=== PATIENT | male | born 1960 | race Caucasian/White ===

== ENCOUNTER 2016-12-19 18:05 | Emergency (ER) | payer MEDICAID ==
[~2016-12-19] VITALS: Ht 172.7 cm; Wt 86.2 kg
--- NOTE | 2016-12-19 18:18 | Emergency Room Report ---
History of Present Illness General Chief Complaint: Alcohol Intoxication Source: Patient, EMS (Soo Dietz) Present Illness HPI 56 YO Male presents to the ED intoxicated with alcohol, pt. is NAD, pt. is alert , no obvious signs of trauma, able to ambulate to [facility], pt. is tearful, and states hx of COPD but continues to smoke regularly. pt. states he is rx'd inhaler. states he has a hx of severe depression and nothing works for him. denies SI/HI. Denies trauma or fall. pt. does not know how much he drank today other than "a lot" denies abdominal pain, N/V, Fevers or chills. denies sputum production. Denies CP, Palpitations, LOC, AMS, dizziness, Changes in Vision, Sensation, paresthesias, or a sudden severe headache. (Soo Dietz) Allergies: Coded Allergies: UNABLE TO ASSESS (Unverified , 12/19/16) Patient History Past Medical History: see triage record, psych hx - depression Past Surgical History: none Pertinent Family History: none Social History: Reports: alcohol use, smoking Reviewed Nursing Documentation: PMH: Agreed, PSxH: Agreed (Soo Dietz) Nursing Documentation-PMH Past Medical History: No Stated History (Soo Dietz) Review of Systems All Other Systems: negative except mentioned in HPI - pt is intoxicated, answers questions (Soo Dietz) Physical Exam Vital Signs Date Time Temp Pulse Resp B/P Pulse Ox O2 Delivery O2 Flow Rate FiO2 12/19/16 18:03 72 18 154/70 98 Sp02 EP Interpretation: reviewed, abnormal - elevated BP General Appearance: no apparent distress, alert, GCS 15, non-toxic, other - patient is disheveled Head: normocephalic, atraumatic Eyes: bilateral eye PERRL, bilateral eye normal inspection ENT: hearing grossly normal, normal pharynx, no angioedema, normal voice Neck: full range of motion, supple/symm/no masses Respiratory: chest non-tender, lungs clear, normal breath sounds, speaking full sentences Cardiovascular #1: regular rate, rhythm, no edema, normal capillary refill Gastrointestinal: normal bowel sounds, non tender, soft, no guarding, no rebound Rectal: deferred Musculoskeletal: back normal, gait/station normal, normal range of motion, non- tender Neurologic: alert, oriented x3, responsive, motor strength/tone normal, sensory intact, normal gait, speech normal, no pronator Psychiatric: judgement/insight normal, memory normal, mood/affect normal, depressed affect Suicide Risk Assessment: Suicidal Ideation: No Had intent to initiate attempt: No Pt's plan for suicide attempt: No Has means to complete attempt: No Skin: normal color, no rash, warm/dry, other - pt has flushed appearance of face and chest. Lymphatic: no adenopathy (Soo Dietz) Medical Decision Making PA Attestation Dr. Carver is my supervising Physician whom patient management has been discussed with. (Soo Dietz) Diagnostic Impression: Primary Impression: Acute alcoholic intoxication Qualified Codes: F10.120 - Alcohol abuse with intoxication, uncomplicated Additional Impressions: Depressed Qualified Codes: F33.1 - Major depressive disorder, recurrent, moderate History of COPD ER Course Pt. presents to the ED intoxicated with alcohol, pt. is NAD, pt. is alert, no obvious signs of trauma, able to ambulate to [facility], pt. is tearful, and states hx of COPD but continues to smoke regularly. pt. states he is rx'd inhaler. states he has a hx of severe depression and nothing works for him. denies SI/ HI. Ddx considered but are not limited to ETOH, Trauma, Syncope, dementia, OD, COPD exacerbation, PNA Vital signs: are WNL, pt. is afebrile H&PE are most consistent with ETOH abuse. and hx of COPD ORDERS: -none required at this time. -pt. declines psych. services for his depression. ED INTERVENTIONS: - Albuterol Nebulized. -Atrovent nebulized Tx. -Observance while he detoxifies. Pt. was allowed to sleep/rest until clinically sober. DISCHARGE: At this time pt. is stable for d/c to home. Will provide printed patient care instructions, and any necessary prescriptions. Care plan and follow up instructions have been discussed with the patient prior to discharge. (Soo Dietz) ER Course Hospital Course 56-year-old male presents to ED status post EtOH intoxication. History of depression Clinical course Patient initially seen and evaluated by my PA; please see her note for full history and physical Patient noted to be wheezing with history of COPD. Given breathing treatment with symptoms improved Patient initially endorsed some depression, crying. However no evidence of suicidal homicidal ideation. No hearing voices. Patient allowed to rest in now awake alert oriented x3. ambulating without difficulty. Patient feels better and wishes to be discharged. No longer feeling depressed. I do not believe patient requires emergent psychiatric evaluation Diagnosis - ETOH intoxication , depressed, COPD stable and discharged to home. Followup with PMD. Return to ED if symptoms recur or worsen (ARIADNA LOFTON M.D.) Last Vital Signs Date Time Temp Pulse Resp B/P Pulse Ox O2 Delivery O2 Flow Rate FiO2 12/19/16 18:03 72 18 154/70 98 (Soo Dietz) Status: improved (ARIADNA LOFTON M.D.) Disposition: HOME, SELF-CARE Condition: Stable Signed Out To: Dr. Lofton (Soo Dietz) Soo Dietz December 19, 2016 18:18 ARIADNA LOFTON M.D. December 20, 2016 06:00
[2016-12-19] MEDS ORDERED: Ipratropium 0.02% Inh Soln 2.5ml UD HHN ONE (18:30)
[2016-12-19] MEDS ORDERED: Albuterol ud Inhalation HHN ONE (18:30)
[2016-12-19 20:18] VITALS: BP 118/75
[2016-12-19 22:23] VITALS: BP 114/68
[2016-12-20 01:37] VITALS: BP 109/66
[2016-12-20 04:51] VITALS: BP 143/73
[2016-12-20 05:27] VITALS: BP 143/73
== END 2016-12-20 05:30 | disposition home or self-care (01) ==
LOC: EDBD 18:05 → EMR 19:55
DX: F10.120 Alcohol abuse with intoxication, uncomplicated (principal); F33.1 Major depressive disorder, recurrent, moderate; J44.9 Chronic obstructive pulmonary disease, unspecified; F17.200 Nicotine dependence, unspecified, uncomplicated
CPT/HCPCS: 82962; 94640; 94664; 99284

== ENCOUNTER 2017-03-04 13:00 | Emergency (ER) | payer MEDICAID ==
[~2017-03-04] VITALS: Ht 172.7 cm; Wt 72.6 kg
[2017-03-04 15:29] VITALS: BP 138/69
[2017-03-04 19:20] VITALS: BP 138/69
--- NOTE | 2017-03-04 20:18 | Emergency Room Report ---
History of Present Illness General Chief Complaint: Alcohol Intoxication Source: EMS Present Illness HPI The patient is a 57-year-old male with a history of alcohol abuse presenting for alcohol intoxication. He has been seen in this emergency department for the same complaints in the past. He does not provide any information at this time Allergies: Coded Allergies: UNABLE TO ASSESS (Unverified , 12/19/16) Patient History Past Medical History: see triage record Pertinent Family History: none Social History: Reports: alcohol use Reviewed Nursing Documentation: PMH: Agreed, PSxH: Agreed Nursing Documentation-PM Past Medical History: No History, Except For Hx Hypertension: Yes History Of Psychiatric Problem: Yes - etoh abuse Review of Systems All Other Systems: limited Physical Exam Vital Signs Date Time Temp Pulse Resp B/P Pulse Ox O2 Delivery O2 Flow Rate FiO2 03/04/17 12:41 98.2 80 18 118/97 98 Room Air Sp02 EP Interpretation: reviewed, normal General Appearance: no apparent distress, alert, GCS 15, non-toxic Head: normocephalic, atraumatic Eyes: bilateral eye PERRL, bilateral eye normal inspection ENT: hearing grossly normal, normal pharynx, no angioedema, normal voice Neck: full range of motion, supple/symm/no masses Respiratory: chest non-tender, lungs clear, normal breath sounds, speaking full sentences Cardiovascular #1: regular rate, rhythm, no edema Gastrointestinal: normal bowel sounds, non tender, soft, non-distended, no guarding, no rebound Musculoskeletal: back normal, gait/station normal, normal range of motion, non- tender Neurologic: alert, responsive, motor strength/tone normal, sensory intact, other - slurred speech Psychiatric: judgement/insight normal, memory normal, mood/affect normal, no suicidal/homicidal ideation Skin: normal color, no rash, warm/dry, well hydrated Medical Decision Making PA Attestation Dr. Lofton is my supervising physician. Patient management was discussed with my supervising physician Diagnostic Impression: Primary Impression: Acute alcoholic intoxication Qualified Codes: F10.920 - Alcohol use, unspecified with intoxication, uncomplicated ER Course The patient is a 57-year-old male with a history of alcohol abuse presenting for alcohol intoxication DDx considered but not limited to: acute alcohol intoxication, hepatic encephalopathy, drug overdose, hypoglycemia, psychosis Physical exam: Vitals are within normal limits. No apparent distress. Patient is lethargic. Head is normocephalic atraumatic. Pupils are equally round and reactive to light The patient is arousable by touch or name. Lungs are clear to auscultation bilaterally. No abnormal tenderness. Abdomen is soft. Otherwise exam is unremarkable The patient is given time to rest in the emergency department. He is given IV fluids. Upon reevaluation, patient admits to drinking alcohol. The patient is able to ambulate well and is asking to leave at this time. The patient is alert and oriented. The patient be discharged home and given ER precautions. Patient was given advice on alcohol addiction Last Vital Signs Date Time Temp Pulse Resp B/P Pulse Ox O2 Delivery O2 Flow Rate FiO2 03/04/17 19:20 98.0 88 20 138/69 98 Room Air Status: improved Disposition: HOME, SELF-CARE Condition: Improved Referrals: [facility]ERR[facility] (PCP) Patient Instructions: Alcohol Intoxication, [id number] Additional Instructions: My findings were discussed with the patient. Patient was counseled to seek help for alcohol abuse. Patient is stable for discharge, is alert and oriented, and can ambulate without difficulty. Patient is asked to return to ED if you experiences chest pain, abdominal pain, dizziness, falls down, or for any reason. ADIA HARMAN Mar 04, 2017 20:18
== END 2017-03-04 18:40 | disposition home or self-care (01) ==
LOC: MERGE 13:00 → EDBD 13:00 → EMR 13:19
DX: F10.129 Alcohol abuse with intoxication, unspecified (principal); I10 Essential (primary) hypertension
CPT/HCPCS: 96374; 96375; 99284; J2405

== ENCOUNTER 2017-03-05 19:45 | Emergency (ER) | payer MEDICAID ==
[~2017-03-05] VITALS: Ht 172.7 cm; Wt 72.6 kg
[2017-03-05 19:45] VITALS: BP 110/72
[2017-03-05 21:23] VITALS: BP 110/72
--- NOTE | 2017-03-05 21:54 | Emergency Room Report ---
History of Present Illness General Chief Complaint: Alcohol Intoxication Source: Patient, EMS Present Illness HPI The patient is a 57-year-old male who was seen in this emergency Department yesterday for alcohol intoxication brought in by ambulance for alcohol intoxication. He did not provide any information at this time Allergies: Coded Allergies: No Known Allergies (Unverified , 03/05/17) UNABLE TO ASSESS (Unverified , 12/19/16) Patient History Past Medical History: see triage record Pertinent Family History: none Social History: Reports: alcohol use Reviewed Nursing Documentation: PMH: Agreed, PSxH: Agreed Nursing Documentation-PMH Past Medical History: No History, Except For Hx Hypertension: Yes History Of Psychiatric Problem: Yes - Depression Review of Systems All Other Systems: limited Physical Exam Vital Signs Date Time Temp Pulse Resp B/P Pulse Ox O2 Delivery O2 Flow Rate FiO2 03/05/17 19:36 97.9 82 16 110/72 99 Room Air Sp02 EP Interpretation: reviewed, normal General Appearance: no apparent distress, alert, GCS 15, non-toxic Head: normocephalic, atraumatic Eyes: bilateral eye PERRL, bilateral eye normal inspection ENT: hearing grossly normal, normal pharynx, no angioedema, normal voice Respiratory: chest non-tender, lungs clear, normal breath sounds Cardiovascular #1: regular rate, rhythm, no edema Musculoskeletal: back normal, gait/station normal, normal range of motion, non- tender Neurologic: alert, responsive, motor strength/tone normal, sensory intact, other - slurred speech Skin: normal color, no rash, warm/dry, well hydrated Medical Decision Making PA Attestation Dr. Mark is my supervising physician. Patient management was discussed with my supervising physician Diagnostic Impression: Primary Impression: Acute alcoholic intoxication Qualified Codes: F10.929 - Alcohol use, unspecified with intoxication, unspecified ER Course The patient is a 57 old male presenting for alcohol intoxication DDx considered but not limited to: acute alcohol intoxication, hepatic encephalopathy, drug overdose, hypoglycemia, psychosis Physical exam: Vitals are within normal limits. No apparent distress. Patient is lethargic. Head is normocephalic atraumatic. Pupils are equally round and reactive to light The patient is arousable by touch or name. Lungs are clear to auscultation bilaterally. No abnormal tenderness. Abdomen is soft. Otherwise exam is unremarkable The patient is given time to rest in the emergency department. The patient is able to ambulate well and is asking to leave at this time. The patient is alert and oriented. The patient be discharged home and given ER precautions. Patient was given advice on alcohol addiction Last Vital Signs Date Time Temp Pulse Resp B/P Pulse Ox O2 Delivery O2 Flow Rate FiO2 03/05/17 21:23 97.9 72 16 110/72 99 Room Air Status: improved Disposition: HOME, SELF-CARE Condition: Improved Referrals: [facility] (PCP) Patient Instructions: Alcohol Intoxication Additional Instructions: I discussed my findings with the patient. All questions and concerns have been answered. Treatment and medication compliance have been addressed. I advised the patient that they need to follow up with PMD in 3-5 days. Return to ED if symptoms worsen, new symptoms arise, or if needed for any reason. Patient verbalized understanding of discharge instructions. ADIA HARMAN Mar 05, 2017 21:54
== END 2017-03-05 21:25 | disposition home or self-care (01) ==
LOC: EDBD 19:45 → EMR 21:03
DX: F10.129 Alcohol abuse with intoxication, unspecified (principal); I10 Essential (primary) hypertension; F32.9 Major depressive disorder, single episode, unspecified
CPT/HCPCS: 99284

== ENCOUNTER 2020-09-25 22:45 | Emergency (ER) | payer MEDICAID ==
[~2020-09-25] VITALS: Ht 172.7 cm; Wt 68.0 kg
[2020-09-25 23:05] VITALS: BP 144/84
--- NOTE | 2020-09-25 23:05 | Emergency Room Report ---
History of Present Illness General Chief Complaint: Alcohol Intoxication Source: Patient, Medical Record, EMS Present Illness HPI This is a 60-year-old male who is homeless. He was brought in with chief complaint of alcohol intoxication. Multiple bystanders called 911 but patient h ad refused transport into the last time. He was found on the ground next to his wheelchair. Patient said he has been drinking. He denies any complaint. No fever chills but no nausea or vomiting. Not suicidal or homicidal. History is limited because of his intoxication. Allergies: Coded Allergies: No Known Allergies (Unverified , 03/05/17) COVID-19 Screening Contact w/high risk pt: No Experienced COVID-19 symptoms?: No COVID-19 Testing performed [employer]CHESTRA: Yes - Jul 2020 COVID-19 Screening: Negative COVID-19 COVID-19 Testing Source: unknown Patient History Past Medical History: see triage record, old chart reviewed, HTN Past Surgical History: other Pertinent Family History: none Social History: Reports: alcohol use Immunizations: other Reviewed Nursing Documentation: PMH: Agreed; PSxH: Agreed Nursing Documentation-PMH Past Medical History: No History, Except For Hx Hypertension: Yes Review of Systems Eye: Denies: eye pain, blurred vision ENT: Denies: ear pain, nose congestion, throat swelling Respiratory: Denies: cough, shortness of breath Cardiovascular: Denies: chest pain, palpitations Gastrointestinal: Denies: abdominal pain, diarrhea, nausea, vomiting Musculoskeletal: Denies: back pain, joint pain Skin: Denies: rash Neurological: Denies: headache, numbness Endocrine: Denies: increased thirst, increased urine Hematologic/Lymphatic: Denies: easy bruising All Other Systems: negative except mentioned in HPI Physical Exam Vital Signs Date Time Temp Pulse Resp B/P (MAP) Pulse Ox O2 Delivery O2 Flow Rate FiO2 09/25/20 22:46 98.8 59 18 123/86 (98) 98 Room Air Vitals normal Sp02 EP Interpretation: reviewed, normal General Appearance: well appearing, no apparent distress, alert, other - intoxicated Head: normocephalic, atraumatic Eyes: bilateral eye PERRL, bilateral eye EOMI ENT: hearing grossly normal, normal pharynx Neck: full range of motion, supple, no meningismus Respiratory: chest non-tender, lungs clear, normal breath sounds Cardiovascular #1: regular rate, rhythm, no murmur Gastrointestinal: normal bowel sounds, non tender, no mass, no organomegaly, no bruit, non-distended Musculoskeletal: back normal, normal range of motion, other - Amputation of right leg Psychiatric: mood/affect normal Skin: other - Multiple skin graftings; superficial abrasion to dorsum of his hands. Medical Decision Making Homeless Attestation I, The treating physician, Dr Karl Stone, has assessed and agrees that patient is medically stable for discharge to an outpatient disposition. Diagnostic Impression: Primary Impression: Acute alcoholic intoxication Qualified Codes: F10.920 - Alcohol use, unspecified with intoxication, uncomplicated ER Course Patient presents with alcohol intoxication. There is no head trauma to warrant x-ray or CT scan. Patient denies any complaint. Will observe until clinical sobriety. Last Vital Signs Date Time Temp Pulse Resp B/P (MAP) Pulse Ox O2 Delivery O2 Flow Rate FiO2 09/25/20 22:46 98.8 59 18 123/86 (98) 98 Room Air Status: improved Disposition: HOME, SELF-CARE Condition: Stable Patient Instructions: Alcohol Intoxication Additional Instructions: Follow-up with your doctor in 7 days. Return if symptoms worsen. Karl Stone MD Sep 25, 2020 23:05
[2020-09-26 01:36] VITALS: BP 152/81
[2020-09-26 04:26] VITALS: BP 126/72
[2020-09-26 04:51] VITALS: BP 125/70
== END 2020-09-26 05:00 | disposition home or self-care (01) ==
LOC: EDBD 22:45 → EDUNIT# 22:45 → EMR 23:05
DX: F10.920 Alcohol use, unspecified with intoxication, uncomplicated (principal); I10 Essential (primary) hypertension
CPT/HCPCS: 99282